=== PATIENT | male | born 1990 | race Caucasian/White ===

== ENCOUNTER 2021-01-08 19:34 | Emergency (ER) | payer MEDICAID, OTHER, SELFPAY ==
[~2021-01-08] VITALS: Ht 188 cm; Wt 117.9 kg
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
--- NOTE | 2021-01-08 20:30 | NUR ---
PT SLEEPING ON GURNEY, ROOM AIR O2 NOTED TO BE 86% ON ROOM AIR, PLACED ON 2L O2, O2 SAT IMPROVED TO 96%. NO NEEDS AT THIS TIME
[2021-01-08] MEDS ORDERED: SODIUM CHLORIDE 0.9% 1,000ML IVBOLUS ONE (21:00)
[2021-01-08 21:02] LABS: BASOPHILS % (AUTO) 0 % (0-1); EOSINOPHILS % (AUTO) 0 % (1-7); LYMPHOCYTES % (AUTO) 11 % (22-44); MEAN CORPUSCULAR HEMOGLOBIN 30.5 pg (27.5-34.5); MEAN CORPUSCULAR HGB CONC 34.4 g/dL (33.2-36.2); MONOCYTES % (AUTO) 4 % (2-9); NEUTROPHILS % (AUTO) 84 % (42-75); PLATELET COUNT 263 x10^3/uL (130-400); RED BLOOD COUNT 4.64 x10^6/uL (4.38-5.82); RED CELL DISTRIBUTION WIDTH 12.9 % (9.4-14.8)
[2021-01-08 21:15] LABS: ALANINE AMINOTRANSFERASE 54 U/L (12-78); ALBUMIN 3.7 g/dL (3.4-5.0); ANION GAP 4 mmol/L (5-15); CHLORIDE 103 mmol/L (98-107); CREATININE 1.01 mg/dL (0.7-1.3)
[2021-01-08 21:17] LABS: ALKALINE PHOSPHATASE 77 U/L (45-117); BILIRUBIN,TOTAL 0.7 mg/dL (0.2-1.0); TOTAL PROTEIN 7.5 g/dL (6.4-8.2)
--- NOTE | 2021-01-08 21:47 | NUR ---
PT PROVIDED URINAL AND INSTRUCTED TO PROVIDE URINE SAMPLE. PT STATES HE IS UNABLE AT THIS TIME. NO ADDITIONAL NEEDS. REMAINS AT BEDSIDE
[2021-01-08 23:23] LABS: AMPHETAMINE SCREEN, URINE Negative (Negative); BARBITURATE SCREEN, URINE Negative (Negative); BENZODIAZEPINE SCREEN, URINE Positive (Negative); CANNABINOID SCREEN, URINE Positive (Negative); COCAINE SCREEN, URINE Negative (Negative); METHADONE SCREEN, URINE Positive (Negative); OPIATE SCREEN, URINE Negative (Negative)
--- NOTE | 2021-01-09 00:12 | NUR ---
PT AMBULATORY WITH THIS RN. ROOM AIR O2 REMAINED 96% WHILE WALKING, HR 115-125BPM WHILE WALKING. PT REPORTS FEELING BETTER AND "NOT UNSTEADY WALKING." ERP AWARE
[2021-01-09 01:07] VITALS: BP 104/62
--- NOTE | 2021-01-09 01:07 | NUR ---
Patient given discharge instructions and they have confirmed that they understand the instructions. Patient ambulatory with steady gait. NAD, all questions answered appropriately, denies additional needs at this time. No personal belongings left in room after discharge.
== END 2021-01-09 01:09 | disposition home or self-care (01) ==
LOC: ED 23:59
DX: S06.0X0A Concussion without loss of consciousness, initial encounter (principal); F11.10 Opioid abuse, uncomplicated; F12.10 Cannabis abuse, uncomplicated; G92 Toxic encephalopathy; W10.9XXA Fall (on) (from) unspecified stairs and steps, initial encounter; Y93.89 Activity, other specified; Y92.009 Unspecified place in unspecified non-institutional (private) residence as the place of occurrence of the external cause; Y99.8 Other external cause status
CPT/HCPCS: 36415; 70450; 71045; 80053; 80307; 80320; 85025; 85379; 96360; 96361; 99285; J7030; G0480